=== PATIENT | male | born 1965 | race Caucasian/White ===

== ENCOUNTER 2025-05-20 21:24 | Inpatient (IN) ==
[2025-05-20 22:08] LABS: Hematocrit (blood only) 32.4 % (42.0-52.0); Hemoglobin 10.7 g/dl (14.0-18.0); Mean Corpuscular Hemoglobin 28.8 pg (25.0-34.0); Mean Corpuscular Volume 87.3 fL (80.0-100.0); Platelet Count 98 K/uL (130-400); RDW Standard Deviation 44.6 fL (36.4-46.3); Red Blood Count 3.71 M/uL (4.70-6.10); White Blood Count 5.04 K/ul (4.8-10.8)
[2025-05-20 22:18] LABS: Alanine Aminotransferase 23.0 U/L (7-52); Albumin Globulin Ratio 0.8 (0.9-2); Alkaline Phosphatase 60.0 U/L (34-104); Anion Gap 5.0 (3-11); Bilirubin,Total 0.5 mg/dl (0.2-1.0); Blood Urea Nitrogen 24.0 mg/dl (6-23); Calcium 9.0 mg/dl (8.6-10.3); Carbon Dioxide 25.0 mmol/L (21-32); Chloride 102.0 mmol/L (98-107); Creatinine Clr Calc Pharmacy 85.6 ml/min; Globulin 4.1 gm/dl (2.5-4.0); Glucose 151.0 mg/dl (70-99(Fasting)); Potassium 4.4 mmol/L (3.5-5.1); Sodium 132.0 mmol/L (136-145); Total Protein 7.5 gm/dl (6.0-8.3)
[2025-05-20 22:51] LABS: Immature Granulocytes # (auto) 0.02 K/uL (0.01-0.20); Immature Granulocytes % (auto) 0.4 %
[2025-05-20 22:53] LABS: Influenza A virus by PCR Negative (Neg); Influenza B virus by PCR Negative (Neg); SARS CoV2 RNA(COVID-19) Ceph NEGATIVE (Negative)
[2025-05-20 23:10] LABS: Magnesium 1.8 mg/dl (1.7-2.4)
[2025-05-20 23:16] LABS: Appearance Urine Clear (Clear); Bacteria Urine Automated None Seen (None Seen); Epithelial Cell Urine Auto 0-2 /hpf (0-2); Glucose Urine UA Negative (Negative); RBC Urine Automated 0-2 /hpf (0-2); WBC Urine Automated 0-5 /hpf (0-5)
[2025-05-20] MEDS: ACETAMINOPHEN 500 MG TAB PO STA (23:28)
[2025-05-20] MEDS: CEFEPIME 2000MG 2,000 MG/20 ML SYR IV STA (23:30)
[2025-05-20] MEDS: SODIUM CHLORIDE 0.9% 1,000 ML IV ONE ×3 (23:35→23:41)
[2025-05-20] MEDS ORDERED: SODIUM CHLORIDE 0.9% 500 ML IV ONE (23:36)
[2025-05-20] MEDS: SODIUM CHLORIDE 0.9% 500 ML IV ONE (23:41)
--- NOTE | 2025-05-20 23:53 | XRay Report ---
Exam(s): XR CXR 1 VIEW EXAM: XR Chest, 1 View CLINICAL HISTORY: Reason for exam: cough. TECHNIQUE: Frontal view of the chest. COMPARISON: 11/04/2012 FINDINGS: Lungs: Unremarkable. No consolidation. Pleural space: Unremarkable. No pneumothorax. Heart: Unremarkable. No cardiomegaly. Mediastinum: Unremarkable. Normal mediastinal contour. Bones/joints: Unremarkable. No acute fracture. IMPRESSION: No evidence of acute cardiopulmonary process. Electronically signed by: Baltazar Brady MD 05/20/25 23:52 PM
--- NOTE | 2025-05-21 00:28 | Emergency Department Note ---
Impression & Plan Sepsis, Tachycardia, Hypotension, Fever, Cough, History of surgery on lower extremity, Anemia ED Provider Note NAME: NILSA BARCLAY AGE: 59 SEX: M : 1965 ARRIVES VIA: Walk-In INFORMANT: [Patient][family] ED PROVIDER(S): [Joshua Gasca MD] CHIEF COMPLAINT: Hypotension, fever HISTORY OF PRESENT ILLNESS: The patient is a 59-year-old male who had surgery on his right ankle through [facility] 2 weeks ago. He actually saw the orthopedic group today and they felt the wound looked excellent. He has a dressing in place. The patient states that for a few days now, he has felt weak and tired and his blood pressure has been running a bit low. He has been coughing and the cough has worsened. He now also has developed a fever. Given his symptoms, he presents for evaluation. There has been no urinary complaint. No vomiting or diarrhea. No abdominal pain. He is not short of breath. No known sick contacts. PMHx/PSHx/Social Hx: See Below PHYSICAL EXAM: GENERAL: Patient is in no acute distress. HEENT: No acute trauma, normocephalic atraumatic, mucous membranes moist, no nasal congestion. NECK: No stridor, no adenopathy, no meningismus, trachea is midline. LUNGS: Clear to auscultation bilaterally, no wheeze, no rhonchi, breath sounds equal. HEART: Heart tones are distant. The rate is a bit fast, the rhythm is regular. ABDOMEN: Soft, nontender, no peritonitis. Obese. EXTREMITIES: No cyanosis. The patient does have a healing surgical wound to the right distal leg/ankle. There is some subtle warmth but no fabián cellulitis. There is a dressing in place. NEUROLOGIC: Oriented x 3, no acute motor or sensory deficits, no focal weakness. SKIN: No jaundice, no diaphoresis. DIFFERENTIAL DIAGNOSIS: Viral illness, bronchitis or pneumonia, wound infection, UTI, bacteremia or sepsis, among others. EMERGENCY DEPARTMENT PROCEDURES: MEDICAL DECISION MAKING: There is no leukocytosis. The patient is anemic with a hemoglobin of 10.7, I have no old values to use for comparison. Platelet count was low at 98, I have no old values to use for comparison. There was no bandemia. No renal failure or significant electrolyte abnormality. Lactic acid level was not elevated making severe sepsis less likely. There is no concerning liver enzyme elevation. Urinalysis showed some dehydration, no infection. COVID, influenza and RSV test were negative. Chest film did not show pneumonia or CHF. On exam, the patient was coughing. He was febrile, borderline hypotensive initially, tachycardic. The patient was given 2.5 L of IV saline. This should suffice for 30 cc/kg of fluid hydration based on sepsis protocol and the patient's ideal body weight. The patient was given IV cefepime as antibiotic coverage. He was given oral Tylenol. Patient seems to have improved since his IV fluids, right now, he does not appear to require pressor support. The patient is in need of a hospital stay and further workup. His infection certainly sounds as if it may be respiratory in origin as he is coughing. His surgical wound though is a potential source even though the wound appears without significant infection clinically. I did speak with the patient and his family, I spoke with case management, the on-call hospitalist was consulted. Prior/Outside records/notes reviewed: None ECG per my interpretation: Indication was possible sepsis. The ECG shows a sinus tachycardia with a rate of 103. There is no acute ST elevation, no PVCs. The QTc is 427. Continuous Cardiac Monitoring per my interpretation: An order was placed for continuous cardiac monitoring. The monitor shows a rate of 113 with sinus tachycardia. Imaging/x-ray results per my interpretation: Chest x-ray does not show mediastinal widening, pneumonia or pneumothorax. Chronic Medical/Social conditions affecting care: Obesity, recent right lower leg surgery. Care/Management discussed with: Case management, the on-call hospitalist. Level of care consideration(s): After review of the information above and other included data: --I believe the patient requires escalation of care to admission Critical Care Note: I have personally spent 52 minutes of critical care time in the direct management of this patient. This includes bedside care, interpretation of diagnostic studies, and testing, discussion with consultants, patient, and family members, and other required patient management activities. This 52 minutes is in excess of all separately billable procedures. DISPOSITION: Admission Past Med/Surg History Problem List (Updated 05/21/25 @ 01:12 by Joshua Gasca MD) Anemia (Acute) History of surgery on lower extremity (Acute) Cough (Acute) Fever (Acute) Hypotension (Acute) Tachycardia (Acute) Sepsis (Acute) Encounter for pre-operative examination Hypertension Type 2 diabetes mellitus On insulin pump. Managed by endocrinology in [place]. Morbid obesity with BMI of 40.0-44.9, adult Medical History HTN (hypertension) History of anesthesia reaction "wake up irritable" Chronic back pain DM type 2 (diabetes mellitus, type 2) Sleep apnea CPAP Insulin pump in place GERD (gastroesophageal reflux disease) Surgical History History of colonoscopy History of rhinoplasty History of wisdom tooth extraction No significant past surgical history Family History Other No family history of adverse response to anesthesia Social History Smoking Status: Never smoker Second Hand Exposure: No; Do You Dip or Chew Tobacco: No (quit 13-14 years ago); Hx Alcohol Use: No Hx Substance Use: No Preferred Language: [place] Communication Ability: Effective Visual Impairment: No Limitations Hearing Ability: Normal Hemodialysis Charge Nurse Required: No Beliefs That Will Affect Care: None marital status: Single Current Living Situation: Parent current occupational status: employed current occupation: [employer]. Feels Safe at Home: Yes Childhood Exposure to Second-Hand Smoke: No Diet: regular caffeine: Yes during the past year weight has: remained stable Dental Care, Regularly: Yes Physical Activity Frequency: Daily Seatbelt Use: always Sunscreen Use: No Assistive Devices: Glasses Allergies Allergies Allergy/AdvReac Type Severity Reaction Status Date / Time hornet venom Allergy Severe swelling Verified 05/21/25 00:09 Home Meds Home Medications Medication Instructions Recorded Confirmed ascorbic acid (vitamin C) 500 mg 500 mg PO BID 01/23/23 05/20/25 tablet (Vitamin C) insulin lispro 100 unit/mL 1 sliding scale dose subcut 01/23/23 05/21/25 subcutaneous cartridge (Humalog USEASDIRECTD U-100 Insulin) lisinopril 40 mg tablet 40 mg PO QPM 01/23/23 05/21/25 multivitamin 1 tab PO QAM 01/23/23 05/21/25 amlodipine 2.5 mg tablet 2.5 mg PO QAM 05/20/25 05/20/25 cinnamon bark 500 mg capsule 500 mg PO BID 05/20/25 05/21/25 (Cinnamon) gabapentin 300 mg capsule 300 mg PO TID 05/20/25 05/21/25 nystatin 100,000 unit/gram topical 1 applic topical BID 05/20/25 05/20/25 powder omeprazole 40 mg capsule,delayed 40 mg PO QAM 05/20/25 05/21/25 release oxycodone 5 mg tablet 5 mg PO Q6 PRN Pain 05/20/25 05/21/25 tadalafil 5 mg tablet 5 mg PO DAILY PRN Erectile 05/20/25 05/20/25 Dysfunction aspirin 81 mg tablet,delayed 81 mg PO QAM 05/21/25 05/21/25 release cyanocobalamin (vitamin B-12) 2,500 mcg sublingual BID 05/21/25 05/21/25 2,500 mcg sublingual tablet (Vitamin B-12) vitamin B complex 1 tab PO QAM 05/21/25 05/21/25 Previous Rx's Medication Instructions Recorded cholecalciferol (vitamin D3) 50 50 mcg PO BID #30 caps 02/17/22 mcg (2,000 unit) capsule Results & Data (ED) Vital Signs Vital Signs - 24 hr 05/20/25 21:27 05/20/25 22:03 05/20/25 22:10 Temperature 37.5 C 38.3 C H Temperature Source Oral Oral Pulse Rate 120 H 101 H Pulse Rate [Apical] 108 H Pulse Rhythm Regular Pulse Rhythm [Apical] Regular Pulse Strength Normal Pulse Strength [Apical] Normal Respiratory Rate 18 20 Respiratory Effort / Characteristics Non-Labored Spontaneous Non-Labored Spontaneous Respiratory Depth Normal Deep Respiratory Pattern Regular Regular Blood Pressure 113/65 Blood Pressure [Left Arm] 108/61 Blood Pressure Mean 81 Blood Pressure Mean [Left Arm] 76 Blood Pressure Position Sitting Pulse Oximetry 97 96 Oxygen Delivery Method Room Air Room Air Sepsis Recent Fever Within 48 Hours No Sepsis New/Unexplained Change in Mental Status N/A Sepsis Action Taken by Nursing No Action Required 05/20/25 23:01 05/20/25 23:35 Temperature Temperature Source Pulse Rate Pulse Rate [Apical] 108 H 113 H Pulse Rhythm Pulse Rhythm [Apical] Pulse Strength Pulse Strength [Apical] Respiratory Rate 22 22 Respiratory Effort / Characteristics Non-Labored Spontaneous Respiratory Depth Normal Respiratory Pattern Regular Blood Pressure Blood Pressure [Left Arm] 92/65 L 101/68 Blood Pressure Mean Blood Pressure Mean [Left Arm] 74 79 Blood Pressure Position Pulse Oximetry 95 Oxygen Delivery Method Room Air Sepsis Recent Fever Within 48 Hours Sepsis New/Unexplained Change in Mental Status Sepsis Action Taken by Alf Medications Current Medication List: was personally reviewed by me Laboratory Data Attestation: I reviewed the patient's lab results. 05/20/25 21:40 05/20/25 21:40 Lab Results 05/20/25 05/20/25 05/20/25 Range/Units 21:40 21:55 22:58 WBC 5.04 (4.8-10.8) K/ul RBC 3.71 L (4.70-6.10) M/uL Hgb 10.7 L (14.0-18.0) g/dl Hct 32.4 L (42.0-52.0) % MCV 87.3 (80.0-100.0) fL MCH 28.8 (25.0-34.0) pg MCHC 33.0 (32.0-36.0) g/dL RDW Std Deviation 44.6 (36.4-46.3) fL RDW Coeff of Sudheer 14.1 (11.5-14.5) % Plt Count 98 L (130-400) K/uL MPV 10.4 (9.4-12.4) fL Immature Gran % (Auto) 0.4 % Neut % (Auto) 42.5 % Lymph % (Auto) 35.7 % Wake % (Auto) 20.0 % Eos % (Auto) 1.0 % Baso % (Auto) 0.4 % Neut # (Auto) 2.14 (1.40-6.50) K/uL Lymph # (Auto) 1.80 (1.20-3.40) K/uL Wake # (Auto) 1.01 H (0.11-0.59) K/uL Eos # (Auto) 0.05 (0.00-0.50) K/uL Baso # (Auto) 0.02 (0.00-0.20) K/uL Immature Gran # (Auto) 0.02 (0.01-0.20) K/uL RBC Morphology Unremarkable Sodium 132 L (136-145) mmol/L Potassium 4.4 (3.5-5.1) mmol/L Chloride 102 (98-107) mmol/L Carbon Dioxide 25 (21-32) mmol/L Anion Gap 5 (3-11) BUN 24 H (6-23) mg/dl Creatinine 1.34 (0.6-1.4) mg/dl Est Cr Clr Drug Dosing 85.6 ml/min eGFR 60.65 BUN/Creatinine Ratio 17.9 (10-20) Glucose 151 H (70-99(Fasting)) mg/dl Lactate 1.5 (0.4-2.0) mmol/L Calcium 9.0 (8.6-10.3) mg/dl Magnesium 1.8 (1.7-2.4) mg/dl Total Bilirubin 0.5 (0.2-1.0) mg/dl AST 27 (13-39) U/L ALT 23 (7-52) U/L Alkaline Phosphatase 60 (34-104) U/L Total Protein 7.5 (6.0-8.3) gm/dl Albumin 3.4 (3.4-5.0) gm/dl Globulin 4.1 H (2.5-4.0) gm/dl Albumin/Globulin Ratio 0.8 L (0.9-2) Urine Color Dark Yellow Urine Appearance Clear (Clear) Urine pH 5.5 (4.5-7.5) Ur Specific [place] 1.026 (1.000-1.030) Urine Protein Negative (Negative) Urine Glucose (UA) Negative (Negative) Urine Ketones Trace H (Negative) Urine Blood Negative (Negative) Urine Nitrite Negative (Negative) Urine Bilirubin Negative (Negative) Urine Urobilinogen Negative (Negative) Ur Leukocyte Esterase Trace H (Negative) Urine WBC (Auto) 0-5 (0-5) /hpf Urine RBC (Auto) 0-2 (0-2) /hpf U Hyaline Cast (Auto) 3-5 H (0-2) /lpf U Epithel Cells (Auto) 0-2 (0-2) /hpf Urine Bacteria (Auto) None Seen (None Seen) Urine Comment SARS-CoV-2 (PCR) NEGATIVE (Negative) Influenza Type A (PCR) Negative (Neg) Influenza Type B (PCR) Negative (Neg) RSV (RT-PCR) Negative (Neg) Administered Medications Doxycycline Hyclate 100 mg/ (Dextrose) 100 mls @ 50 mls/hr IV NOW STA Stop: 05/21/25 02:27 Last Admin: 05/21/25 00:55 Dose: 50 mls/hr Documented By: MED Discontinued Medications Acetaminophen (Acetaminophen 500 Mg Tab) 1,000 mg PO NOW STA Stop: 05/20/25 22:49 Last Admin: 05/20/25 23:28 Dose: 1,000 mg Documented By: MED Sodium Chloride (Nss) 1,000 mls @ 999 mls/hr IV .Q1H1M ONE Stop: 05/20/25 23:48 Last Admin: 05/20/25 23:35 Dose: 999 mls/hr Documented By: MED Cefepime HCl (Maxipime 2000mg) 2,000 mg in 20 mls @ 5 mls/min IV NOW STA; Protocol Stop: 05/20/25 22:51 Last Admin: 05/20/25 23:30 Dose: 5 mls/min Documented By: MED Sodium Chloride (Nss) 1,000 mls @ 999 mls/hr IV .Q1H1M ONE Stop: 05/21/25 00:36 Last Admin: 05/20/25 23:38 Dose: 999 mls/hr Documented By: MED Sodium Chloride (Nss) 1,000 mls @ 999 mls/hr IV .Q1H1M ONE Stop: 05/21/25 00:38 Last Admin: 05/20/25 23:41 Dose: Not Given Documented By: MED Sodium Chloride (Nss) 500 mls @ 999 mls/hr IV .Q31M ONE Stop: 05/21/25 00:08 Last Infusion: 05/21/25 00:27 Dose: Infused Documented By: chute worker: 05/20/25 23:41 Dose: 999 mls/hr Documented By: MED Imaging Data Radiologist's Impression: Chest X-Ray 05/20/25 21:45 Exam(s): XR CXR 1 VIEW EXAM: XR Chest, 1 View CLINICAL HISTORY: Reason for exam: cough. TECHNIQUE: Frontal view of the chest. COMPARISON: 11/04/2012 FINDINGS: Lungs: Unremarkable. No consolidation. Pleural space: Unremarkable. No pneumothorax. Heart: Unremarkable. No cardiomegaly. Mediastinum: Unremarkable. Normal mediastinal contour. Bones/joints: Unremarkable. No acute fracture. IMPRESSION: No evidence of acute cardiopulmonary process. Electronically signed by: Baltazar Brady MD 05/20/25 23:52 PM Discharge Plan Visit Data Chief Complaint: Hypotension Stated Complaint: LOW BP ED Provider: Joshua Gasca Discharge Problem: Sepsis, Tachycardia, Hypotension, Fever, Cough, History of surgery on lower extremity, Anemia Patient Disposition: Admitted As Inpatient Condition: Serious Forms Stand Alone Forms: My [facility] [employer] Prescriptions Prescriptions: No Action cholecalciferol (vitamin D3) 50 mcg (2,000 unit) capsule 50 mcg PO BID Qty: 30 0RF multivitamin Tablet 1 tab PO QAM ascorbic acid (vitamin C) [Vitamin C] 500 mg Tablet 500 mg PO BID Humalog U-100 Insulin 100 unit/mL Cartridge 1 sliding scale dose SUBCUT USEASDIRECTD Rx Instructions: via pump lisinopril 40 mg tablet 40 mg PO QPM nystatin 100,000 unit/gram powder 1 applic TOPICAL BID Rx Instructions: apply to area under skin folds oxycodone 5 mg tablet 5 mg PO Q6 PRN (Reason: Pain) gabapentin 300 mg capsule 300 mg PO TID omeprazole 40 mg capsule,delayed release(DR/EC) 40 mg PO QAM amlodipine 2.5 mg tablet 2.5 mg PO QAM tadalafil 5 mg tablet 5 mg PO DAILY PRN (Reason: Erectile Dysfunction) cinnamon bark [Cinnamon] 500 mg Capsule 500 mg PO BID cyanocobalamin (vitamin B-12) [Vitamin B-12] 2,500 mcg Tablet, Sublingual 2,500 mcg SUBLINGUAL BID vitamin B complex Tablet 1 tab PO QAM aspirin [Aspirin Low-Strength] 81 mg Tablet,Delayed Release (Dr/Ec) 81 mg PO QAM Rx Instructions: to start 05/21/25 Referrals Referrals: Yoana Nolasco MD [Primary Care Provider] - Discharge Problem: Sepsis Qualifiers: Sepsis type: sepsis due to unspecified organism Sepsis acute organ dysfunction status: without acute organ dysfunction Qualified Code(s): A41.9 - Sepsis, unspecified organism Hypotension Qualifiers: Hypotension type: unspecified hypotension type Qualified Code(s): I95.9 - Hypotension, unspecified Fever Qualifiers: Fever type: unspecified Qualified Code(s): R50.9 - Fever, unspecified Cough Qualifiers: Cough type: acute Qualified Code(s): R05.1 - Acute cough Anemia Qualifiers: Anemia type: unspecified type Qualified Code(s): D64.9 - Anemia, unspecified
[2025-05-21] MEDS: DOXYCYCLINE HYCLATE 100 MG in DEXTROSE 5% MINI-B 100 ML IV STA (00:55)
--- NOTE | 2025-05-21 01:12 | History & Physical Report ---
Date of Service May 21, 2025 Assessment & Plan (1) Sepsis: Plan: Assessment and plan below following discussion of case with ED provider and reviewing patient history/pertinent normal/abnormal diagnostic test results. Sepsis Complicated bronchitis versus atypical pneumonia hypertension, BP on the lower side DM2 on insulin pump, well-controlled as of recent hemoglobin A1c of 6.7 last April 2025 recent R ankle fracture surgery, no concerns on outpatient follow-up visit yesterday Progressive anemia, no obvious source of bleed for now Admit to med/tele CS, Doxycycline IVF Appropriate to hold BP meds for now given borderline BP Follow H&H, transfuse PRBC if hemoglobin less than 7 and or for symptomatic anemia Patient requesting to be able to manage his insulin pump inpatient. DVT prophylaxis. SCDs Re: Progressive anemia Full code Text document was generated using [employer] voice recognition software. It may contain grammatical or spelling errors. Kindly contact undersigned for clarification of any documentation item in question. History of Present Illness Chief Complaint: Fever, chills Primary Care Provider: SUKHWINDER Chappell History obtained from patient and records. Medical history significant for hypertension, BECKY, DM2 on insulin pump, GERD, recent R ankle fracture surgery ([facility] [place], [place] Recent [facility] [place] confinement April 26 to May 08, 2025 for traumatic unstable trimalleolar right ankle fracture after slipping on wet rocks while fishing in [place]. Patient underwent surgery at [facility] [place] last month. Unremarkable postop course before transitioning to rehab facility prior to returning home. Hemoglobin 12.4 at time of discharge from [facility] [place] 2 weeks ago. Patient feeling weak and tired for few days now. Dry cough symptoms. No chest pain, no SOB. Denies aspiration. Not sure about sick contacts given recent rehab stay and outpatient office visits. No concerns for postop right ankle on outpatient follow-up with surgeon yesterday as per patient. Blood pressure noted to be low at home yesterday. Patient directed by PCP to ER for evaluation. Lowest SBP of 90s documented at the ER. Cefepime administered at the ER. Medical History as above Surgical History : Right ankle surgery Family History : Congenital heart disease, dementia, prostate cancer Personal/Social history : Non-smoker, occasional EtOH intake, computer numerical control grinder Allergies Allergy/AdvReac Type Severity Reaction Status Date / Time hornet venom Allergy Severe swelling Verified 05/21/25 00:09 Home Medications Medication Instructions Recorded Confirmed Type cholecalciferol (vitamin D3) 50 50 mcg PO BID #30 caps 02/17/22 05/20/25 Rx mcg (2,000 unit) capsule ascorbic acid (vitamin C) 500 mg 500 mg PO BID 01/23/23 05/20/25 History tablet (Vitamin C) insulin lispro 100 unit/mL 1 sliding scale dose subcut 01/23/23 05/21/25 History subcutaneous cartridge (Humalog USEASDIRECTD U-100 Insulin) lisinopril 40 mg tablet 40 mg PO QPM 01/23/23 05/21/25 History multivitamin 1 tab PO QAM 01/23/23 05/21/25 History amlodipine 2.5 mg tablet 2.5 mg PO QAM 05/20/25 05/20/25 History cinnamon bark 500 mg capsule 500 mg PO BID 05/20/25 05/21/25 History (Cinnamon) gabapentin 300 mg capsule 300 mg PO TID 05/20/25 05/21/25 History nystatin 100,000 unit/gram topical 1 applic topical BID 05/20/25 05/20/25 History powder omeprazole 40 mg capsule,delayed 40 mg PO QAM 05/20/25 05/21/25 History release oxycodone 5 mg tablet 5 mg PO Q6 PRN Pain 05/20/25 05/21/25 History tadalafil 5 mg tablet 5 mg PO DAILY PRN Erectile 05/20/25 05/20/25 History Dysfunction aspirin 81 mg tablet,delayed 81 mg PO QAM 05/21/25 05/21/25 History release cyanocobalamin (vitamin B-12) 2,500 mcg sublingual BID 05/21/25 05/21/25 History 2,500 mcg sublingual tablet (Vitamin B-12) vitamin B complex 1 tab PO QAM 05/21/25 05/21/25 History Past Med/Surg History Problem List (Updated 05/21/25 @ 01:12 by Joshua Gasca MD) Anemia (Acute) History of surgery on lower extremity (Acute) Cough (Acute) Fever (Acute) Hypotension (Acute) Tachycardia (Acute) Sepsis (Acute) Encounter for pre-operative examination Hypertension Type 2 diabetes mellitus On insulin pump. Managed by endocrinology in [place]. Morbid obesity with BMI of 40.0-44.9, adult Medical History HTN (hypertension) History of anesthesia reaction "wake up irritable" Chronic back pain DM type 2 (diabetes mellitus, type 2) Sleep apnea CPAP Insulin pump in place GERD (gastroesophageal reflux disease) Surgical History History of colonoscopy History of rhinoplasty History of wisdom tooth extraction No significant past surgical history Family History Other No family history of adverse response to anesthesia Social History Smoking Status: Never smoker Second Hand Exposure: No; Do You Dip or Chew Tobacco: No (quit 13-14 years ago); Hx Alcohol Use: No Hx Substance Use: No Preferred Language: Occitan Communication Ability: Effective Visual Impairment: No Limitations Hearing Ability: Normal Mobile Home Servicer Required: No Beliefs That Will Affect Care: None marital status: Single Current Living Situation: Family current occupational status: employed current occupation: [employer]. Other Information That Helps Us Care for You: No Feels Safe at Home: Yes Safety Concerns: Feels Safe At This Time Childhood Exposure to Second-Hand Smoke: No Diet: regular caffeine: Yes during the past year weight has: remained stable Dental Care, Regularly: Yes Physical Activity Frequency: Daily Seatbelt Use: always Sunscreen Use: No Assistive Devices: Glasses, Walker and Wheelchair Review of Systems Review of Systems: As per HPI, all other systems reviewed and negative Physical Exam Physical Exam: GENERAL: Comfortable, morbidly obese, pleasant, no respiratory distress SKIN: Pallor, warm HEENT: Alopecia, bespectacled, pale palpebral conjunctivae, no ptosis, dry buccal mucosa NECK : Supple, short neck, no tenderness CHEST : Decreased breath sounds, no tenderness HEART : Tachycardic, no obvious murmurs ABDOMEN: Some distention, nontender EXTREMITIES : RLE immobilizer, palpable pulses, no other conspicuous deformities noted NEUROLOGIC : Coherent, no facial asymmetry, no other gross focality Results & Data Results & Data Vital Signs (Past 12 Hours) Vital Signs Temp Pulse Pulse Resp BP BP Pulse Ox 05/20/25 23:35 113 H 22 101/68 95 05/20/25 23:01 108 H 22 92/65 L 05/20/25 22:10 101 H 05/20/25 22:03 38.3 C H 108 H 20 108/61 96 05/20/25 21:27 37.5 C 120 H 18 113/65 97 O2 Del Method 05/20/25 23:35 Room Air 05/20/25 23:01 05/20/25 22:10 05/20/25 22:03 Room Air 05/20/25 21:27 Room Air Laboratory Results Laboratory Results WBC 5.04 K/ul (4.8-10.8) 05/20/25 21:40 RBC 3.71 M/uL (4.70-6.10) L 05/20/25 21:40 Hgb 10.7 g/dl (14.0-18.0) L 05/20/25 21:40 Hct 32.4 % (42.0-52.0) L 05/20/25 21:40 MCV 87.3 fL (80.0-100.0) 05/20/25 21:40 MCH 28.8 pg (25.0-34.0) 05/20/25 21:40 MCHC 33.0 g/dL (32.0-36.0) 05/20/25 21:40 RDW Std Deviation 44.6 fL (36.4-46.3) 05/20/25 21:40 RDW Coeff of Sudheer 14.1 % (11.5-14.5) 05/20/25 21:40 Plt Count 98 K/uL (130-400) L 05/20/25 21:40 MPV 10.4 fL (9.4-12.4) 05/20/25 21:40 Immature Gran % (Auto) 0.4 % 05/20/25 21:40 Neut % (Auto) 42.5 % 05/20/25 21:40 Lymph % (Auto) 35.7 % 05/20/25 21:40 [place] % (Auto) 20.0 % 05/20/25 21:40 Eos % (Auto) 1.0 % 05/20/25 21:40 Baso % (Auto) 0.4 % 05/20/25 21:40 Neut # (Auto) 2.14 K/uL (1.40-6.50) 05/20/25 21:40 Lymph # (Auto) 1.80 K/uL (1.20-3.40) 05/20/25 21:40 [place] # (Auto) 1.01 K/uL (0.11-0.59) H 05/20/25 21:40 Eos # (Auto) 0.05 K/uL (0.00-0.50) 05/20/25 21:40 Baso # (Auto) 0.02 K/uL (0.00-0.20) 05/20/25 21:40 Immature Gran # (Auto) 0.02 K/uL (0.01-0.20) 05/20/25 21:40 RBC Morphology Unremarkable 05/20/25 21:40 Sodium 132 mmol/L (136-145) L 05/20/25 21:40 Potassium 4.4 mmol/L (3.5-5.1) 05/20/25 21:40 Chloride 102 mmol/L (98-107) 05/20/25 21:40 Carbon Dioxide 25 mmol/L (21-32) 05/20/25 21:40 Anion Gap 5 (3-11) 05/20/25 21:40 BUN 24 mg/dl (6-23) H 05/20/25 21:40 Creatinine 1.34 mg/dl (0.6-1.4) 05/20/25 21:40 Est Cr Clr Drug Dosing 85.6 ml/min 05/20/25 21:40 eGFR 60.65 05/20/25 21:40 BUN/Creatinine Ratio 17.9 (10-20) 05/20/25 21:40 Glucose 151 mg/dl (70-99(Fasting)) H 05/20/25 21:40 Lactate 1.5 mmol/L (0.4-2.0) 05/20/25 21:55 Calcium 9.0 mg/dl (8.6-10.3) 05/20/25 21:40 Magnesium 1.8 mg/dl (1.7-2.4) 05/20/25 21:40 Total Bilirubin 0.5 mg/dl (0.2-1.0) 05/20/25 21:40 AST 27 U/L (13-39) 05/20/25 21:40 ALT 23 U/L (7-52) 05/20/25 21:40 Alkaline Phosphatase 60 U/L (34-104) 05/20/25 21:40 Total Protein 7.5 gm/dl (6.0-8.3) 05/20/25 21:40 Albumin 3.4 gm/dl (3.4-5.0) 05/20/25 21:40 Globulin 4.1 gm/dl (2.5-4.0) H 05/20/25 21:40 Albumin/Globulin Ratio 0.8 (0.9-2) L 05/20/25 21:40 Urine Color Dark Yellow 05/20/25 22:58 Urine Appearance Clear (Clear) 05/20/25 22:58 Urine pH 5.5 (4.5-7.5) 05/20/25 22:58 Ur Specific [place] 1.026 (1.000-1.030) 05/20/25 22:58 Urine Protein Negative (Negative) 05/20/25 22:58 Urine Glucose (UA) Negative (Negative) 05/20/25 22:58 Urine Ketones Trace (Negative) H 05/20/25 22:58 Urine Blood Negative (Negative) 05/20/25 22:58 Urine Nitrite Negative (Negative) 05/20/25 22:58 Urine Bilirubin Negative (Negative) 05/20/25 22:58 Urine Urobilinogen Negative (Negative) 05/20/25 22:58 Ur Leukocyte Esterase Trace (Negative) H 05/20/25 22:58 Urine WBC (Auto) 0-5 /hpf (0-5) 05/20/25 22:58 Urine RBC (Auto) 0-2 /hpf (0-2) 05/20/25 22:58 U Hyaline Cast (Auto) 3-5 /lpf (0-2) H 05/20/25 22:58 U Epithel Cells (Auto) 0-2 /hpf (0-2) 05/20/25 22:58 Urine Bacteria (Auto) None Seen (None Seen) 05/20/25 22:58 Urine Comment 05/20/25 22:58 SARS-CoV-2 (PCR) NEGATIVE (Negative) 05/20/25 21:40 Influenza Type A (PCR) Negative (Neg) 05/20/25 21:40 Influenza Type B (PCR) Negative (Neg) 05/20/25 21:40 RSV (RT-PCR) Negative (Neg) 05/20/25 21:40 Impressions Chest X-Ray 05/20/25 21:45 Exam(s): XR CXR 1 VIEW EXAM: XR Chest, 1 View CLINICAL HISTORY: Reason for exam: cough. TECHNIQUE: Frontal view of the chest. COMPARISON: 11/04/2012 FINDINGS: Lungs: Unremarkable. No consolidation. Pleural space: Unremarkable. No pneumothorax. Heart: Unremarkable. No cardiomegaly. Mediastinum: Unremarkable. Normal mediastinal contour. Bones/joints: Unremarkable. No acute fracture. IMPRESSION: No evidence of acute cardiopulmonary process. Electronically signed by: Baltazar Brady MD 05/20/25 23:52 PM Diagnostic Findings EKG as per my interpretation :Rate 105, sinus tachycardia, normal axis, no ischemia (1) Sepsis Sepsis acute organ dysfunction status: without acute organ dysfunction Sepsis type: sepsis due to unspecified organism Qualified Code(s): A41.9 - Sepsis, unspecified organism
[2025-05-21] MEDS ORDERED: GLUCAGON FOR INJ 1 MG VIAL SQ PRN (01:26)
[2025-05-21] MEDS ORDERED: DEXTROSE 50% 50 ML SYRINGE IV PRN (01:26)
[2025-05-21] MEDS ORDERED: GLUCOSE 10 TAB/TUBE PO PRN (01:26)
[2025-05-21] MEDS ORDERED: INSULIN ASPART 100 UNITS/ML VIAL SC PRN (01:26)
[2025-05-21] MEDS ORDERED: CARBOHYDRATES FOR HYPOGLYCEMIA PO PRN (01:26)
[2025-05-21] MEDS ORDERED: GLUCOSE 40% GEL 15 GM TUBE PO PRN (01:26)
[2025-05-21] MEDS ORDERED: NON-FORMULARY MEDICATION (Insulin Lispro [Humalog U-100 Insulin] 100 unit/mL Cartridge) SQ SCH (01:30)
[2025-05-21] MEDS: MAGNESIUM SULFATE / D5W 1 GM/100 ML BAG IV ONE (02:03)
[2025-05-21] MEDS: SODIUM CHLORIDE 0.9% 1,000 ML IV ONE (04:05)
[2025-05-21 07:46] LABS: Hematocrit (blood only) 30.0 % (42.0-52.0); Hemoglobin 9.9 g/dl (14.0-18.0); Mean Corpuscular Hemoglobin 28.5 pg (25.0-34.0); Mean Corpuscular Volume 86.5 fL (80.0-100.0); Platelet Count 98 K/uL (130-400); RDW Standard Deviation 45.1 fL (36.4-46.3); Red Blood Count 3.47 M/uL (4.70-6.10); White Blood Count 4.99 K/ul (4.8-10.8)
[2025-05-21 07:53] LABS: Anion Gap 5.0 (3-11); Blood Urea Nitrogen 17.0 mg/dl (6-23); Calcium 8.1 mg/dl (8.6-10.3); Carbon Dioxide 22.0 mmol/L (21-32); Chloride 105.0 mmol/L (98-107); Creatinine Clr Calc Pharmacy 118.8 ml/min; Glucose 181.0 mg/dl (70-99(Fasting)); Iron 26.0 mcg/dl (35-175); Potassium 4.7 mmol/L (3.5-5.1); Sodium 132.0 mmol/L (136-145); Transferrin 204.0 mg/dl (200-360)
[2025-05-21 08:06] LABS: Thyroid Stimulating Hormone 1.39 uIu/ml (0.300-4.500)
[2025-05-21 08:08] LABS: Folate (Folic Acid),Ser orPlas 19.32 ng/ml (>5.38)
[2025-05-21 08:09] LABS: Vitamin B12 679.0 pg/ml (180-914)
[2025-05-21 08:12] LABS: Ferritin 537.4 ng/ml (8-388)
[2025-05-21] MEDS: INSULIN, Rapid-Acting PUMP SC SCH (08:28)
[2025-05-21] MEDS: MULTIVITAMIN TAB PO SCH (08:29)
[2025-05-21] MEDS: CYANOCOBALAMIN (B-12) 2,500 MCG TABLET SL SCH (08:29)
[2025-05-21] MEDS: GABAPENTIN 300 MG CAP PO SCH (08:29)
[2025-05-21] MEDS: VITAMIN B COMPLEX TAB PO SCH (08:29)
[2025-05-21] MEDS: ACETAMINOPHEN 325 MG TAB PO PRN (08:33)
--- NOTE | 2025-05-21 09:05 | Hospitalist Progress Note ---
Date of Service May 21, 2025 Assessment & Plan (1) Sepsis: (2) Hypotension: (3) Cough: (4) History of surgery on lower extremity: (5) Anemia: (6) Type 2 diabetes mellitus: (7) Sleep apnea: (8) GERD (gastroesophageal reflux disease): Plan 59 year old male with PMH significant for type 2 diabetes, sleep apnea, hypertension, GERD, and recent ankle fracture s/p ORIF who presented to the ED on 05/21/2025 with low blood pressure, fevers, and weakness x2 days and is admitted for sepsis. Sepsis Patient meets criteria for sepsis with fever, tachycardia, tachypnea on admission No leukocytosis, negative lactate Unclear source at this time with considerations for post surgical infection or Babesia CXR negative UA unremarkable Blood cultures pending Babesia PCR pending Continue doxycycline Continue MIVF Hypotension BPs 90s/60s on arrival Received 2.5L NSS in ED with improvement in blood pressure Continue MIVF Hold antihypertensives Bronchitis Patient reports dry cough x1 week with fevers x2 days CXR negative Covid, flu, RSV negative Continue doxycycline Ankle fracture s/p ORIF Recently admitted at [facility] [place] from 04/17-05/08/2025 Had ortho follow up yesterday and was instructed to take baby aspirin daily for 30 days - ordered Anemia Hgb 10.7-> 9.9 No signs of bleeding Outpatient review revealed post op Hgb around 11.8 (prior to surgery around 14) Iron level low, transferrin normal, ferritin high most consistent with anemia of chronic disease Vitamin B12 and folate WNL Monitor CBC Thrombocytopenia Platelets 98 on admission Outpatient review revealed platelets around 250 Could be secondary to recent lovenox use Monitor CBC Type 2 diabetes Has insulin pump Sleep apnea CPAP HS GERD Continue omeprazole DVT Prophylaxis: SCDs Code Status: FULL CODE PCP: Yoana Nolasco Patient seen in collaboration with Dr Orosco. Please see addendum. I spent a total of 70 minutes coordinating, documenting and providing care for this patient excluding time spent in the performance of separately billed services or time spent by another provider/QHP. Admission and Anticipated Discharge Date Admission Date: May 21, 2025 Supervising Physician Co-Signing Physician Notes Attending addendum: Patient was seen and examined in medical telemetry unit in presence of the family members He was admitted with fever noted to have sepsis Has minimal cough without any phlegm and no chest pain and no palpitation or shortness of breath Denies any abdominal pain nausea no vomiting On examination Morbidly obese, lying in bed without any acute distress Hemodynamically stable and is afebrile Chestdecreased breath sounds bilaterally without any crackles and/or wheezing HeartS1-S2, regular Abdomendistended, soft and bowel sound present Extremitieschronic edema and also chronic skin changes His admission labs, imaging studies and EKG reviewed Presented with sepsis with history of travel outside [facility] in [place] was negative for any lesions and suspected to have bronchitis and clinical examination Bloody smear came back positive for RBC inclusion bodies and serology have been sent for Babesia and malaria and also Lyme titer will be sent His other significant medical conditions remained stable and he has been feeling much better Agree with assessment plan as outlined above by aMrcos PRETTY and take the full responsibility of care in the hospital Dr Jennifer W[place]-19 CDC guideline data points: Subjective Patient seen sitting up in bed Reports he is feeling a lot better than he did yesterday Notes he was experiencing chills, weakness, fatigue, fevers 101-102, low blood pressures for the last 2 days Notes a dry cough for the last week Was still taking antihypertensives despite low readings at home, admits he may have been a little dehydrated Had ortho follow up yesterday and reported no concerns Review of Systems Review of Systems: All systems reviewed & are unremarkable except as noted in Subjective Physical Exam Physical Exam: General/Psych: morbidly obese, sitting up in bed, NAD, conversing easily, appears anxious Head: normocephalic, atraumatic Eyes: normal inspection, PERRL, conjunctivae pink ENT: external ear and nose normal, oropharynx normal Neck: normal visual inspection, trachea midline Respiratory: normal respiratory effort, lungs clear to auscultation, no wheeze/rales/rhonchi, no accessory muscle use Cardiovascular: regular rate and rhythm, no murmur/rub/gallop, no JVD Extremities: no cyanosis or clubbing, normal peripheral pulses, no BLE edema, CAM boot to RLE Abdomen/GI: normal bowel sounds, soft, nontender Neurologic/MSK: A+Ox3, motor strength 5/5, moves all extremities Skin: no rashes, normal color, warm and dry, bruising to abdomen Results & Data Results & Data Vital Signs (Past 12 Hours) Vital Signs Temp Pulse Pulse Pulse Resp BP BP 07/16/25 08:06 36.7 C 114 H 122/75 05/21/25 05:33 106 H 05/21/25 03:04 05/21/25 02:50 109 H 05/21/25 02:46 36.8 C 109 H 20 108/53 L 05/21/25 02:09 110 H 28 H 105/49 L 05/20/25 23:35 113 H 22 101/68 05/20/25 23:01 108 H 22 92/65 L 05/20/25 22:10 101 H 05/20/25 22:03 38.3 C H 108 H 20 108/61 05/20/25 21:27 37.5 C 120 H 18 113/65 Pulse Ox O2 Del Method 05/21/25 08:06 93 Room Air 05/21/25 05:33 05/21/25 03:04 Room Air 05/21/25 02:50 05/21/25 02:46 97 Room Air 05/21/25 02:09 94 Room Air 05/20/25 23:35 95 Room Air 05/20/25 23:01 05/20/25 22:10 05/20/25 22:03 96 Room Air 05/20/25 21:27 97 Room Air Laboratory Results Short CBC 05/20/25 05/21/25 Range/Units 21:40 07:09 WBC 5.04 4.99 (4.8-10.8) K/ul Hgb 10.7 L 9.9 L (14.0-18.0) g/dl Hct 32.4 L 30.0 L (42.0-52.0) % Plt Count 98 L 98 L (130-400) K/uL BMP 05/20/25 05/21/25 21:40 07:09 Sodium 132 L 132 L Potassium 4.4 4.7 Chloride 102 105 Carbon Dioxide 25 22 BUN 24 H 17 Creatinine 1.34 0.97 D Glucose 151 H 181 H Calcium 9.0 8.1 L Liver Function 05/20/25 Range/Units 21:40 Total Bilirubin 0.5 (0.2-1.0) mg/dl AST 27 (13-39) U/L ALT 23 (7-52) U/L Alkaline Phosphatase 60 (34-104) U/L Albumin 3.4 (3.4-5.0) gm/dl Urine 05/20/25 Range/Units 22:58 Urine Color Dark Yellow Urine Appearance Clear (Clear) Urine pH 5.5 (4.5-7.5) Ur Specific [place] 1.026 (1.000-1.030) Urine Protein Negative (Negative) Urine Glucose (UA) Negative (Negative) I have independently reviewed and interpreted patient's labs including CBC, BMP, iron studies, vitamin B12, folate, TSH Diagnostic Findings Chest X-Ray 05/20/25 21:45 Exam(s): XR CXR 1 VIEW EXAM: XR Chest, 1 View CLINICAL HISTORY: Reason for exam: cough. TECHNIQUE: Frontal view of the chest. COMPARISON: 11/04/2012 FINDINGS: Lungs: Unremarkable. No consolidation. Pleural space: Unremarkable. No pneumothorax. Heart: Unremarkable. No cardiomegaly. Mediastinum: Unremarkable. Normal mediastinal contour. Bones/joints: Unremarkable. No acute fracture. IMPRESSION: No evidence of acute cardiopulmonary process. Electronically signed by: Baltazar Brady MD 05/20/25 23:52 PM Medications Administered Current Inpatient Medications Acetaminophen (Acetaminophen 325 Mg Tab) 650 mg PO QID PRN PRN Reason: pain/fever Stop: 06/20/25 01:29 Last Admin: 05/21/25 08:33 Dose: 650 mg Cyanocobalamin (Cyanocobalamin (B-12) 2,500 Mcg Tablet) 2,500 mcg SL BID DENIS Stop: 06/20/25 08:59 Last Admin: 05/21/25 08:29 Dose: 2,500 mcg Dextrose (Dextrose 50% 50 Ml Syringe) 25 - 50 ml IV UD PRN; Protocol PRN Reason: Hypoglycemia Protocol Stop: 06/20/25 01:25 Doxycycline Hyclate (Doxycycline Hyclate 100 Mg Cap) 100 mg PO BID DENIS Stop: 05/26/25 20:59 Gabapentin (Gabapentin 300 Mg Cap) 300 mg PO TID DENIS Stop: 06/20/25 08:59 Last Admin: 05/21/25 13:04 Dose: 300 mg Glucagon (Glucagon For Inj 1 Mg Vial) 1 mg SQ UD PRN; Protocol PRN Reason: Hypoglycemia Protocol Stop: 06/20/25 01:25 Glucose (Glucose 40% Gel 15 Gm Tube) 15 - 30 gm PO UD PRN; Protocol PRN Reason: Hypoglycemia Protocol Stop: 06/20/25 01:25 Glucose (Glucose 10 Tab/Tube) 4 - 8 tab PO UD PRN; Protocol PRN Reason: Hypoglycemia Protocol Stop: 06/20/25 01:25 Sodium Chloride (Nss) 1,000 mls @ 75 mls/hr IV .[id number] ONE Stop: 05/21/25 16:30 Last Admin: 05/21/25 04:05 Dose: 75 mls/hr Insulin Aspart (Insulin, Rapid-Acting Pump) 0 each SC ACHS DENIS; Protocol Stop: 06/20/25 07:29 Last Admin: 05/21/25 12:38 Dose: 11.4 each Insulin Aspart (Insulin Aspart 100 Units/Ml Vial) 0 units SC PRN PRN PRN Reason: Insulin (Rapid-Acting) Pump Refill Stop: 06/20/25 01:25 Miscellaneous (Carbohydrates For Hypoglycemia ) 15 - 30 gm PO UD PRN PRN Reason: Hypoglycemia Protocol Stop: 06/20/25 01:25 Multivitamins (Multivitamin Tab) 1 tab PO QAM [facility] Stop: 06/20/25 08:59 Last Admin: 05/21/25 08:29 Dose: 1 tab Oxycodone HCl (Oxycodone Hcl Ir 5 Mg Tab (Immediate Release)) 5 mg PO Q6H PRN PRN Reason: Pain Stop: 06/04/25 01:28 Pantoprazole Sodium (Pantoprazole 40 Mg Tab) 40 mg PO QAM [facility] Stop: 06/20/25 08:59 Last Admin: 05/21/25 08:29 Dose: 40 mg Vitamin B Complex (Vitamin B Complex Tab) 1 tab PO QAM [facility] Stop: 06/20/25 08:59 Last Admin: 05/21/25 08:29 Dose: 1 tab (1) Sepsis Sepsis acute organ dysfunction status: without acute organ dysfunction Sepsis type: sepsis due to unspecified organism Qualified Code(s): A41.9 - Sepsis, unspecified organism (2) Hypotension Hypotension type: unspecified hypotension type Qualified Code(s): I95.9 - Hypotension, unspecified (3) Cough Cough type: acute Qualified Code(s): R05.1 - Acute cough (5) Anemia Anemia type: unspecified type Qualified Code(s): D64.9 - Anemia, unspecified
[2025-05-21 09:23] LABS: Immature Granulocytes # (auto) 0.02 K/uL (0.01-0.20); Immature Granulocytes % (auto) 0.4 %
[2025-05-21 09:24] LABS: Toxic Vacuolation 1+
[2025-05-21 11:37] LABS: Reticulocytes # 0.090 10^6/uL (0.020-0.100)
--- NOTE | 2025-05-21 13:07 | Electrocardiogram Report ---
Test Reason : Blood Pressure : */* mmHG Vent. Rate : 103 BPM Atrial Rate : 103 BPM P-R Int : 132 ms QRS Dur : 86 ms QT Int : 326 ms P-R-T Axes : 32 14 47 degrees QTcB Int : 427 ms Sinus tachycardia Otherwise normal ECG No previous ECGs available Confirmed by Janes Aragon ([id number]) on 05/21/2025 1:07:08 PM Referred By: REFERRED SELF Confirmed By: Janes Aragon
[2025-05-21] MEDS: ASPIRIN 81 MG ECTAB PO SCH (13:52)
[2025-05-21] MEDS: DOXYCYCLINE HYCLATE 100 MG CAP PO SCH (20:38)
[2025-05-22 07:41] VITALS: RESP 18
[2025-05-22 08:21] LABS: Hematocrit (blood only) 31.0 % (42.0-52.0); Hemoglobin 10.2 g/dl (14.0-18.0); Mean Corpuscular Hemoglobin 28.2 pg (25.0-34.0); Mean Corpuscular Volume 85.6 fL (80.0-100.0); Platelet Count 84 K/uL (130-400); RDW Standard Deviation 44.9 fL (36.4-46.3); Red Blood Count 3.62 M/uL (4.70-6.10); White Blood Count 4.37 K/ul (4.8-10.8)
[2025-05-22 08:34] LABS: Alanine Aminotransferase 28.0 U/L (7-52); Albumin Globulin Ratio 0.9 (0.9-2); Alkaline Phosphatase 53.0 U/L (34-104); Anion Gap 5.0 (3-11); Bilirubin,Total 0.8 mg/dl (0.2-1.0); Blood Urea Nitrogen 14.0 mg/dl (6-23); Calcium 8.6 mg/dl (8.6-10.3); Carbon Dioxide 25.0 mmol/L (21-32); Chloride 102.0 mmol/L (98-107); Creatinine Clr Calc Pharmacy 120.7 ml/min; Globulin 3.7 gm/dl (2.5-4.0); Glucose 99.0 mg/dl (70-99(Fasting)); Potassium 4.1 mmol/L (3.5-5.1); Sodium 132.0 mmol/L (136-145); Total Protein 7.2 gm/dl (6.0-8.3)
[2025-05-22 08:42] LABS: Immature Granulocytes # (auto) 0.03 K/uL (0.01-0.20); Immature Granulocytes % (auto) 0.7 %
[2025-05-22] MEDS: AZITHROMYCIN 250 MG TAB PO ONE (08:45)
[2025-05-22] MEDS: ATOVAQUONE 750 MG/5 ML UDC PO SCH (08:45)
[2025-05-22 11:32] VITALS: BP 128/79; TEMP 99.3; O2SAT 99
[2025-05-22] MEDS: Continuous Glucose Monitor SCH (12:38)
[2025-05-22] MEDS: DOXYCYCLINE HYCLATE 100 MG CAP PO STA (12:38)
--- NOTE | 2025-05-22 13:35 | Discharge Summary ---
Discharge Summary Date of Service May 22, 2025 Principal Dx & Hospital Course #1 = Principal Diagnosis (1) Sepsis: (2) Hypotension: (3) Cough: (4) History of surgery on lower extremity: (5) Anemia: (6) Type 2 diabetes mellitus: (7) Sleep apnea: (8) GERD (gastroesophageal reflux disease): Plan 59 year old male with PMH significant for type 2 diabetes, sleep apnea, hypertension, GERD, and recent ankle fracture s/p ORIF who presented to the ED on 05/21/2025 with low blood pressure, fevers, and weakness x2 days and is admitted for sepsis. Sepsis Patient met criteria for sepsis with fever, tachycardia, tachypnea on admission No leukocytosis, negative lactate CXR negative UA unremarkable Blood cultures prelim no growth Received MIVF while inpatient Possible babesiosis, lyme disease Patient presented with fevers and malaise x2 days Denies known tick bite but was fishing in [place] about a month ago Labs revealed anemia, elevated LDH, reticulocytosis, thrombocytopenia consistent with babesiosis Lyme screen negative but could be too early in symptom onset Discussed case with Infectious Disease on 05/22/25 who recommended treatment for babesiosis with azithromycin 500mg x1 and 250mg daily x7 days, atovaquone 750mg bid x7 days, and doxycycline 100mg bid x10 days Hypotension BPs 90s/60s on admission Received 2.5L NSS in ED with improvement in blood pressure Resumed antihypertensives on day of discharge Encouraged patient to monitor BPs closely at home and drink adequate fluids Bronchitis Patient reports dry cough with fevers x2 days CXR negative Covid, flu, RSV negative Doxycycline and azithromycin would cover if bronchitis Ankle fracture s/p ORIF Recently admitted at [facility] from 04/17-05/08/2025 Had ortho follow up on 05/20/2025 and was instructed to take baby aspirin daily for 30 days Type 2 diabetes Has insulin pump Sleep apnea CPAP HS GERD Continue omeprazole Patient seen in collaboration with Dr Orosco. Please see addendum. Notes For Next Care Provider 59 year old male with significant PMH who was admitted at [facility] from 05/21- 05/22/2025 with sepsis secondary to probable babesiosis/lyme disease. On admission, patient was hypotensive and blood pressures responded well to adequate fluid resuscitation. Labs including peripheral blood smear consistent with babesia but PCR is still pending for confirmatory diagnosis. Lyme screen was negative but could have been too early in symptom onset. Case discussed with infectious disease who recommended medications as detailed below. Patient was still having intermittent fevers in the hospital but they were responsive to tylenol and he was comfortable being discharged to home. He was instructed to resume antihypertensive medications, drink adequate fluids, and monitor blood pressure at home. Please follow up on blood pressure readings outpatient. Medication Changes From Visit Azithromycin 250mg daily x6 days (received 500mg x1 in hospital) Atovaquone 750mg bid x7 days Doxycycline 100mg bid x10 days Admission HPI Per Admitting Provider History obtained from patient and records. Medical history significant for hypertension, BECKY, DM2 on insulin pump, GERD, recent R ankle fracture surgery ([facility], 04/2025). Recent [facility] confinement April 26 to May 08, 2025 for traumatic unstable trimalleolar right ankle fracture after slipping on wet rocks while fishing in [place]. Patient underwent surgery at [facility] last month. Unremarkable postop course before transitioning to rehab facility prior to returning home. Hemoglobin 12.4 at time of discharge from [facility] 2 weeks ago. Patient feeling weak and tired for few days now. Dry cough symptoms. No chest pain, no SOB. Denies aspiration. Not sure about sick contacts given recent rehab stay and outpatient office visits. No concerns for postop right ankle on outpatient follow-up with surgeon yesterday as per patient. Blood pressure noted to be low at home yesterday. Patient directed by PCP to ER for evaluation. Lowest SBP of 90s documented at the ER. Cefepime administered at the ER. Medical History as above Surgical History : Right ankle surgery Family History : Congenital heart disease, dementia, prostate cancer Personal/Social history : Non-smoker, occasional EtOH intake, computer applications instructor Admission Exam Per Admitting Provider GENERAL: Comfortable, morbidly obese, pleasant, no respiratory distress SKIN: Pallor, warm HEENT: Alopecia, bespectacled, pale palpebral conjunctivae, no ptosis, dry buccal mucosa NECK : Supple, short neck, no tenderness CHEST : Decreased breath sounds, no tenderness HEART : Tachycardic, no obvious murmurs ABDOMEN: Some distention, nontender EXTREMITIES : RLE immobilizer, palpable pulses, no other conspicuous deformities noted NEUROLOGIC : Coherent, no facial asymmetry, no other gross focality Discharge Exam General/Psych: morbidly obese, sitting up in bed, NAD, conversing easily, appears anxious Head: normocephalic, atraumatic Eyes: normal inspection, PERRL, conjunctivae pink ENT: external ear and nose normal, oropharynx normal Neck: normal visual inspection, trachea midline Respiratory: normal respiratory effort, lungs clear to auscultation, no wheeze/rales/rhonchi, no accessory muscle use Cardiovascular: regular rate and rhythm, no murmur/rub/gallop, no JVD Extremities: no cyanosis or clubbing, normal peripheral pulses, no BLE edema, CAM boot to RLE Abdomen/GI: normal bowel sounds, soft, nontender Neurologic/MSK: A+Ox3, motor strength 5/5, moves all extremities Skin: no rashes, normal color, warm and dry, bruising to abdomen Updated Medication List Medication Instructions Recorded Confirmed Type cholecalciferol (vitamin D3) 50 50 mcg PO BID #30 caps 02/17/22 05/20/25 Rx mcg (2,000 unit) capsule ascorbic acid (vitamin C) 500 mg 500 mg PO BID 01/23/23 05/20/25 History tablet (Vitamin C) insulin lispro 100 unit/mL 1 sliding scale dose subcut 01/23/23 05/21/25 History subcutaneous cartridge (Humalog USEASDIRECTD U-100 Insulin) lisinopril 40 mg tablet 40 mg PO QPM 01/23/23 05/21/25 History multivitamin 1 tab PO QAM 01/23/23 05/21/25 History amlodipine 2.5 mg tablet 2.5 mg PO QAM 05/20/25 05/20/25 History cinnamon bark 500 mg capsule 500 mg PO BID 05/20/25 05/21/25 History (Cinnamon) gabapentin 300 mg capsule 300 mg PO TID 05/20/25 05/21/25 History nystatin 100,000 unit/gram topical 1 applic topical BID 05/20/25 05/20/25 History powder omeprazole 40 mg capsule,delayed 40 mg PO QAM 05/20/25 05/21/25 History release oxycodone 5 mg tablet 5 mg PO Q6 PRN Pain 05/20/25 05/21/25 History tadalafil 5 mg tablet 5 mg PO DAILY PRN Erectile 05/20/25 05/20/25 History Dysfunction aspirin 81 mg tablet,delayed 81 mg PO QAM 05/21/25 05/21/25 History release cyanocobalamin (vitamin B-12) 2,500 mcg sublingual BID 05/21/25 05/21/25 History 2,500 mcg sublingual tablet (Vitamin B-12) vitamin B complex 1 tab PO QAM 05/21/25 05/21/25 History atovaquone 750 mg/5 mL oral 750 mg (5 mL) PO BID #65 mL 05/22/25 Rx suspension azithromycin 250 mg tablet 250 mg PO QAM #6 tabs 05/22/25 Rx doxycycline hyclate 100 mg capsule 100 mg PO BID #17 caps 05/22/25 Rx Hospital Stay Data Consultations 05/20/25 23:53 ED Decision to Admit Stat 05/22/25 10:57 Consult Infectious Diseases Routine Diagnostic Imagining Performed Chest X-Ray 05/20/25 21:45 Exam(s): XR CXR 1 VIEW EXAM: XR Chest, 1 View CLINICAL HISTORY: Reason for exam: cough. TECHNIQUE: Frontal view of the chest. COMPARISON: 11/04/2012 FINDINGS: Lungs: Unremarkable. No consolidation. Pleural space: Unremarkable. No pneumothorax. Heart: Unremarkable. No cardiomegaly. Mediastinum: Unremarkable. Normal mediastinal contour. Bones/joints: Unremarkable. No acute fracture. IMPRESSION: No evidence of acute cardiopulmonary process. Electronically signed by: Baltazar Brady MD 05/20/25 23:52 PM Pending Results Patient Have Any Pending Studies at Discharge: Yes Discharge Instructions Given to Patient (Per Discharging Provider) You presented to the hospital with fevers and low blood pressure and were admitted for sepsis. You were given fluids which helped your blood pressure increase. We performed testing to check for sources of infection as detailed below. At this point, the most likely source of your sepsis is babesiosis which is a parasite transmitted by ticks. The treatment for this is two medications, which you will need to take for 7 days. We consulted our infectious disease d dilcia, who recommended also treating you for lyme disease, because although your test here was negative, its possible that we tested you too early in your symptom course. Therefore, you are being discharged on a total of three new medications. You were still having fevers in the hospital, but feel comfortable managing these at home and would like to be discharged. Please resume your blood pressure medications and continue to monitor your blood pressure at home. It is important that you stay well hydrated. Please discuss your blood pressures with your PCP at your follow up appointment next week. MEDICATION CHANGES: Doxycycline 100mg by mouth twice daily until 05/30/25 after your evening dose - recommend taking with food to avoid GI upset and avoid prolonged sun exposure on this medication Atovaquone 750mg by mouth twice daily until 05/28/25 after your evening dose - this medication has to be taken with food to absorb properly Azithromycin 250mg by mouth once daily until 05/28/25 after your morning dose SUMMARY OF TEST RESULTS: Peripheral blood smear concerning for babesia (most likely) or malaria (less likely) Lyme screen negative (could be falsely negative) Chest x-ray normal Urine no sign of infection Covid, flu, RSV negative PENDING TEST RESULTS: Babesia PCR to confirm babesiosis Blood cultures have no bacteria growing after 24 hours but are still preliminary RECOMMENDATIONS FOR FOLLOW-UP: Please follow up with your PCP as scheduled on 05/28/2025 at 1:20pm OTHER INSTRUCTIONS: Seek medical attention if you have: * temperature not responsive to tylenol * chest pain or trouble breathing * diarrhea, dark stools or bloody stools * any unanswered questions or concerns Call 911 if symptoms are severe. It has been a pleasure taking care of you. Please take care of yourself. If you have any questions regarding your recent hospitalization please contact [facility] and request Jos Mcallister @ [phone]. Total Time Total Time Spent Total Time Spent (In Minutes): I spent a total of 35 minutes coordinating, documenting and providing care for this patient excluding time spent in the performance of separately billed services or time spent by another provider/QHP. Supervising Physician Co-Signing Physician Notes Attending addendum: Patient was seen and examined in medical telemetry unit in presence of the family members He was admitted with fever noted to have sepsis Has minimal cough without any phlegm and no chest pain and no palpitation or shortness of breath Denies any abdominal pain nausea no vomiting On examination Morbidly obese, lying in bed without any acute distress Hemodynamically stable and is afebrile Chestdecreased breath sounds bilaterally without any crackles and/or wheezing HeartS1-S2, regular Abdomendistended, soft and bowel sound present Extremitieschronic edema and also chronic skin changes His admission labs, imaging studies and EKG reviewed Presented with sepsis with history of travel outside [place] in [place] was negative for any lesions and suspected to have bronchitis and clinical examination Bloody smear came back positive for RBC inclusion bodies and serology have been sent for Babesia and malaria and also Lyme titer will be sent His other significant medical conditions remained stable and he has been feeling much better Agree with assessment plan as outlined above by Marcos PRETTY and take the full responsibility of care in the hospital Dr Jennifer Orosco 05/22/2025 The patient was seen and examined in medical telemetry unit He has been feeling much better and denies any cough, shortness of breath, fever and or chills He wants to go home and denies any other significant symptoms He remains hemodynamically stable and is afebrile. His labs and imaging studies reviewed noted to have babesiosis though the confirmatory test is pending He has had evaluation by ID and recommendations were given as above He will be discharged home this afternoon Agree with assessment plan as outlined above by Rose PRETTY and take the full responsibility of care in the hospital Dr Jennifer Orosco
[2025-05-22 14:05] VITALS: PULSE 85
[2025-05-23] MEDS ORDERED: AZITHROMYCIN 250 MG TAB PO SCH (09:00)
== END 2025-05-22 16:22 | disposition home or self-care (01) | DRG 872 ==
LOC: ED 21:24 → 2N 05-21 01:14